=== PATIENT | male | born 1975 | race Caucasian/White ===

== ENCOUNTER 2020-01-05 17:31 | Emergency (ER) | payer OTHER, SELFPAY ==
[2020-01-05 17:35] VITALS: BP 124/76; PULSE 86; RESP 16; TEMP 36.6; O2SAT 95; BMI 23.7
--- NOTE | 2020-01-05 18:01 | XR_ITS ---
WS: [id number] EXAM: XR lumbar spine 2-3V* [id number] DATE OF EXAMINATION: 01/05/2020, 1804 hours COMPARISON: Lumbar spine examination from 10/21/2018 HISTORY: 44 years old with low back pain. FINDINGS: Lower thoracic and lumbar vertebrae are of normal height. Minimal degenerative spondylosis change L2- 3 and L3-4 levels similar. There has been interval increase in narrowing of the disc space at the L4- 5 level with slight posterior facet arthropathy changes. L5-S1 levels fairly normal in appearance. No acute fracture or subluxation is seen. No pars fracture noted. All pedicles are present on the AP ra diograph. Fairly prominent posterior facet arthropathy changes are seen at the L4-5 level. Postsurgic al undersurface hemilaminotomy changes are suspected on the right at the L4 level. No paraspinal soft tissue abnormality is seen. XR/XR lumbar spine 2-3V* [id number] IMPRESSION: NO ACUTE BONY ABNORMALITY. FINDINGS OF PROGRESSIVE NARROWING OF THE DISC SPACE AT THE L4-5 LEVEL. POSTSURG ICAL CHANGES SEEN AT THE L4-5 LEVEL. FACET ARTHROPATHY CHANGES MOST PROMINENT L 4-5 LEVEL.
--- NOTE | 2020-01-05 18:01 | W.ED.BACK ---
HPI - Back Pain/Injury General: Chief Complaint: Back Pain/Injury Stated Complaint: back pain Time Seen by Provider: 01/05/20 17:45 Source: patient Mode of arrival: ambulatory Limitations: no limitations History of Present Illness: HPI Narrative: 44-year-old male patient comes in with increasing low back discomfort and radiation of pain into the left leg, worsening over the last 2 to 3 months. Last year patient had a surgery done by Dr. Nolasco to help repair a disc in his lower back. Patient reports that he did not have a fusion. Patient reports he had been doing very well and started back to work in July but as he has been working he is noticed some increasing discomfort in the low back with some radiation into his left lower extremity. Patient denies any bowel or bladder complaints. Review of Systems General: Reports: 10 or more systems reviewed and unremarkable except in HPI and below Musc: Reports: back pain Physical Exam Const: COMMON NORMALS: no acute distress and patient oriented x3 GENERAL APPEARANCE: cooperative HENMT: COMMON NORMALS: normocephalic and Normal external nose present HEAD & SCALP: normal to inspection and normocephalic NOSE: Normal external nose present MOUTH: Normal oral and palatal mucosa present Eye: GENERAL EYE: appearance normal, both eyes and all related structures Neck/C-Spine: COMMON NORMALS: full ROM Chest: COMMONS NORMALS: normal inspection of the chest Resp: COMMON NORMALS: normal respiratory effort EFFORT & INSPECTION: Yes able to speak in complete sentences Cardio: COMMON NORMALS: regular rate and regular rhythm RATE: regular rate RHYTHM: regular rhythm GI: COMMON NORMALS: non-tender : COMMON NORMALS: Yes no CVA tenderness BLADDER/KIDNEY EXAM: Yes no CVA tenderness Back/Pelvis: COMMON NORMALS: no CVA tenderness THORACIC SPINE/UPPER BACK: Yes normal to inspection LUMBAR SPINE/LOWER BACK: Yes lumbar spinal tenderness (lower lumbar) and Yes paraspinal muscle tenderness Lumbar paraspinal muscle tenderness: left Extremity: COMMON NORMALS: normal to inspection Neuro: COMMON NORMALS: patient oriented x3 and moves all extremities Psych: COMMON NORMALS: mental status grossly normal and cooperative Skin: COMMON NORMALS: no rashes or lesions noted GENERAL SKIN EXAM: no rashes or lesions noted Course Vital Signs: Vital signs: Vital Signs Temperature 97.9 F 01/05/20 17:35 Pulse Rate 86 01/05/20 17:35 Respiratory Rate 16 01/05/20 17:35 Blood Pressure 124/76 01/05/20 17:35 Pulse Oximetry 95 01/05/20 17:35 MDM - Back Pain/Injury MDM Narrative: Medical decision making narrative: Patient comes in today with some lower back pain. Patient reports some discomfort in the lower back radiating down his left leg with numbness. Patient has a history of a kelsie-laminectomy done last December. On exam patient has some muscle tenderness and discomfort to the left lower back. Some central lumbar vertebral tenderness along the L4-L5 region. Differential diagnosis includes but not limited to compression fracture, intervertebral disc disease, facet arthropathy. X-rays noticed some increasing narrowing between L4-L5 of the lumbar vertebra. Reviewed exam and imaging with patient with recommendations for follow-up with neurology. Patient reports understanding of care plan and need for follow-up. Discharge Plan Discharge Patient Disposition: Home Clinical Impression: Lumbar radiculopathy, History of hemilaminectomy Condition: Stable Prescriptions: New naproxen 500 mg tablet 500 mg PO BID Qty: 20 RF: 0 cyclobenzaprine 10 mg tablet 10 mg PO .HS Qty: 10 RF: 0 Discharge Orders: Discharge Order (Routine); Ordered 01/05/20 Ordered By: Deion Sethi Referrals: Gary Baum FNP [Primary Care Provider] - Discharge Diet: Usual diet Discharge Activity: Increase activity as tolerated Patient Instructions: Lumbar Radiculopathy (ED) Activity Restrictions/Additional Instructions: Activity as tolerated. Drink plenty of water with medication. Follow-up with neuro clinical reimbursement specialist. Case management will contact you with follow-up appointment. Follow-up with primary care as needed. Return to the emergency department for new concerns. Stand Alone Forms: Work/School Release Coding Level of Care Code ED Water Supply Technician for Jenifer Kay
[2020-01-05 18:54] VITALS: BP 124/76; PULSE 87; RESP 16; TEMP 36.6; O2SAT 95
--- NOTE | 2020-01-09 14:50 | DCPLANNER ---
manager security had message to schedule a follow up appointment for patient with neurology and a land acquisition specialist. Patient was a patient of Dr. Nolasco in the past. manager security called [facility], top case assembler not for sure when Dr. Nolasco finished seeing patients. manager security was told that Dr. Nolasco is no longer seeing patients. manager security was told to call the office of Halie Poole to see if she would see patient, since he was a patient of Dr. Mcpherson. manager security called the office of [facility]ie Poole, spoke with Yessy, gave clinic patients information. Clinic will call patient with appointment information.
--- NOTE | 2020-01-16 14:49 | DCPLANNER ---
Patient has a follow up appointment scheduled for , January 18, 2020 at 3:30 with Halie Poole. Clinic will call patient with appointment information.
--- NOTE | 2020-02-15 08:18 | DCPLANNER ---
Patient had a follow up appointment scheduled for 01.18.20 with Halie Poole - patient did attend the appointment.
== END 2020-01-05 18:56 | disposition home or self-care (01) ==
PROVIDERS: Emergency Provider Nurse Practitioner Family; PCP Nurse Practitioner Family
DX: M54.16 Radiculopathy, lumbar region (principal)
CPT/HCPCS: 12345; 72100; 99281; 99282

== ENCOUNTER → 2020-01-23 15:34 | Outpatient (BNVA) | payer OTHER, SELFPAY | PROVIDERS: PCP Nurse Practitioner Family; Visit Provider Licensed Practical Nurse | DX: M51.16 Intervertebral disc disorders with radiculopathy, lumbar region (principal); Z98.890 Other specified postprocedural states | CPT/HCPCS: 99214 ==

== ENCOUNTER 2020-02-08 13:09 | Outpatient (CLI) | payer OTHER, SELFPAY ==
--- NOTE | 2020-02-08 13:00 | MR_ITS ---
WS: [id number] MRI LUMBAR SPINE WITH AND WITHOUT CONTRAST. HISTORY: Low back pain COMPARISON: 10/21/2018 TECHNIQUE: Sagittal and axial multisequence imaging is submitted. Unchanged disc osteophyte encroachment upon the ventral cervical cord at C4-5 and C5-6. Facet joint arthritis at T10-11 encroaching into the posterior lateral thecal sac bilaterally with mi ld stenosis centrally. No interval change. Mild increase in the lumbar lordosis. Mild disc space narrowing and desiccation at L3-4 and L4-5. Mil d progression of disc space disease at L4-5. There is a small amount of marrow edema in the superior LEFT lateral L3 vertebral body. Conus terminates normally at L1. L1-L2: Normal. L2-L3: Mild annular disc bulging and facet arthritis. No stenosis. L3-L4: Mild diffuse asymmetric disc bulging, greatest to the RIGHT. Mild encroachment upon the ventra l thecal sac and subarticular recesses. Small osteophytes contribute to mild bilateral foraminal narr owing. No interval change. L4-L5: Diffuse annular disc bulging with osteophytic ridging. Moderate facet joint arthritis narrowin g the foramen. Previously described central disc protrusion is smaller in size. LEFT paracentral area of enhancement from gliosis and fibrosis. Prior LEFT hemilaminectomy defect. Less encroachment and n arrowing of the central thecal sac. Mild clumping of the nerve roots. There is mild enhancement and e nlargement and edema within the L5 LEFT nerve root. Continued moderate bilateral foraminal stenosis, LEFT greater than RIGHT. L5-S1: Large LEFT hemilaminectomy defect. Mild annular disc bulging. There is a central shallow protr usion with annular fissure. No encroachment upon the thecal sac. No discitis or osteomyelitis. MR/MR lumbar spine wo/w con [id number] IMPRESSION: 1. Since the prior MRI patient has undergone LEFT laminectomy defects at L4-5 and L5-S1. No recurrent disc herniation is identified. Mild improvement in the central canal stenosis at L4-5 and L5-S1. 2. Mild enlargement and enhancement of the LEFT L5 nerve root from neuritis. 3. Moderate bilateral foraminal stenosis, LEFT greater than RIGHT at L4-5 unch anged. 4. Mild encroachment upon the subarticular recesses and foramen at L3-4.
--- NOTE | 2020-02-08 13:45 | XR_ITS ---
WS: [id number] LATERAL LUMBAR SPINE: 3 view. Lateral radiographs are performed in upright neutral, flexion and extension to the patient's toleranc e. HISTORY: Low back pain. COMPARISON: 01/05/2020 Moderate increase in the lumbar lordosis. 3-4 mm retrolisthesis of L1-L4. With flexion and extension the retrolisthesis does not significantly change. No fractures. Small endplate osteophytes throughout the lumbar spine. XR/XR lumbar spine f/e only [id number] IMPRESSION: 1. L1-L4 retrolisthesis by 3 to 4 mm. No instability during flexion or extensi on. 2. Increase in lumbar lordosis.
== END 2020-02-08 13:10 | disposition home or self-care (01) ==
LOC: RADWPI 13:14
PROVIDERS: Family Provider Nurse Practitioner Family; PCP Nurse Practitioner Family; Visit Provider Licensed Practical Nurse
DX: M54.5 Low back pain (principal); M48.061 Spinal stenosis, lumbar region without neurogenic claudication; M96.1 Postlaminectomy syndrome, not elsewhere classified
CPT/HCPCS: 72120; 72158; A9579

== ENCOUNTER → 2020-02-13 08:01 | Outpatient (BNVA) | payer OTHER, SELFPAY | PROVIDERS: Family Provider Nurse Practitioner Family; PCP Nurse Practitioner Family; Visit Provider Licensed Practical Nurse | DX: M51.16 Intervertebral disc disorders with radiculopathy, lumbar region (principal); Z98.890 Other specified postprocedural states | CPT/HCPCS: 99214 ==

== ENCOUNTER 2020-02-20 11:34 | Outpatient (RCR) | payer OTHER, SELFPAY | END 2020-03-16 23:59 | disposition home or self-care (01) | LOC: SPT 11:34 | PROVIDERS: PCP Nurse Practitioner Family; Referring Provider Licensed Practical Nurse; Visit Provider Licensed Practical Nurse | DX: M51.16 Intervertebral disc disorders with radiculopathy, lumbar region (principal); Z98.890 Other specified postprocedural states | CPT/HCPCS: 97110; 97161 ==

== ENCOUNTER → 2020-03-12 08:28 | Outpatient (BNVA) | payer OTHER, SELFPAY | PROVIDERS: PCP Nurse Practitioner Family; Visit Provider Licensed Practical Nurse | DX: M51.16 Intervertebral disc disorders with radiculopathy, lumbar region (principal); Z98.890 Other specified postprocedural states | CPT/HCPCS: 99213 ==